=== PATIENT | male | born 1980 | race Two or more races ===

== ENCOUNTER → 2017-10-21 | Outpatient (CLI) | payer BC ==
[2017-10-21 11:22] LABS: CHOLESTEROL LEVEL 149 MG/DL (<200); CHOLESTEROL RISK RATIO 4.257 (<5); GLUCOSE, FASTING 93 MG/DL (70-100); HDL CHOLESTEROL 35 MG/DL (>40); LDL CHOLESTEROL 70.6 MG/DL (<100); NON-HDL-C 114 MG/DL; TRIGLYCERIDES LEVEL 217 MG/DL (<150)
== END ==
LOC: M SMT 08:06
DX: R63.1 Polydipsia (principal); Z13.220 Encounter for screening for lipoid disorders; Z68.34 Body mass index [BMI] 34.0-34.9, adult

== ENCOUNTER 2020-04-01 20:58 | Emergency (ER) | payer BC, OTHER ==
[~2020-04-01] VITALS: Ht 200.7 cm; Wt 145.4 kg
[2020-04-01] MEDS ORDERED: KETOROLAC 60MG 2ML VIAL IM ONE (23:45)
[2020-04-02] VITALS: BP 151/70
--- NOTE | 2020-04-02 08:28 | REP ---
REASON: Chest pain. The technique utilized in obtaining the radiograph has magnified the cardiac silhouette and accentuated the interstitial markings. Minimal discoid opacities are seen in the left lower lobe consistent with minimal discoid subsegmental atelectatic change. The lung hunt are otherwise clear and the pleural angles are sharp. The heart is not enlarged. IMPRESSION: Minimal left lower lobe discoid atelectasis. Electronically Signed by Kenneth Michel DO 04/02/2020 09:55 A
--- NOTE | 2020-04-02 16:29 | ECGEPIP ---
[facility] - ED Test Date: 2020-04-01 Pat Name: JOSÉ DUMONT Department: Room: - Gender: Male Elementary Supervisor: nirav : 1980 Requested By: MARGO SCHWARTZ Order Number: [id number] Reading MD: Cheyenne Zeng Measurements Intervals [place] Rate: 81 P: 66 OR: 179 QRS: 68 QRSD: 106 T: 44 QT: 344 QTc: 402 Interpretive Statements SINUS RHYTHM INCREASED RATE 11/05/15 Electronically Signed on 04-02-2020 16:29:16 EDT by Cheyenne Zeng
== END 2020-04-02 00:14 | disposition home or self-care (01) ==
LOC: M ED 20:58
DX: M94.0 Chondrocostal junction syndrome [Tietze] (principal); F17.210 Nicotine dependence, cigarettes, uncomplicated
CPT/HCPCS: 36600; 71045; 82803; 84484; 93005; 96372; 99284; J1885

== ENCOUNTER 2021-05-06 13:29 | Emergency (ER) | payer BC ==
[~2021-05-06] VITALS: Ht 200.7 cm; Wt 136.4 kg
[2021-05-06 16:47] LABS: BASO # 0.1 10^3/uL (0.0-0.2); BASO % 0.5 % (0.0-1.0); EOS # 0.7 10^3/uL (0.0-0.5); EOS % 5.6 % (0.0-3.0); HEMATOCRIT 47.7 % (42.0-52.0); HEMOGLOBIN 16.2 g/dl (13.5-17.5); LYMPH # 3.1 10^3/uL (1.5-5.0); LYMPH % 25.1 % (24.0-44.0); MEAN CORPUSCULAR HEMOGLOBIN 31.1 pg (27.0-33.0); MEAN CORPUSCULAR VOLUME 91.6 fl (80.0-96.0); MONO # 0.9 10^3/uL (0.0-0.8); MONO % 7.3 % (2.0-8.0); NEUTROPHILS # 7.5 10^3/uL (1.5-8.5); NEUTROPHILS % 61.1 % (36.0-66.0); PLATELET COUNT, AUTOMATED 335 10^3/uL (150-450); RED BLOOD COUNT 5.21 10^6/uL (4.30-6.10); WHITE BLOOD COUNT 12.3 10^3/uL (4.0-10.0)
[2021-05-06 17:15] LABS: BLOOD UREA NITROGEN 12 MG/DL (7-18); CALCIUM LEVEL 8.5 MG/DL (8.5-10.1); CARBON DIOXIDE LEVEL 24 MEQ/L (21-32); CHLORIDE LEVEL 110 MEQ/L (98-107); CREATININE FOR GFR 0.94 MG/DL (0.70-1.30); GLOMERULAR FILTRATION RATE > 60.0 (>60); GLUCOSE, FASTING 131 MG/DL (70-100); POTASSIUM SERUM 4.3 MEQ/L (3.5-5.1); SODIUM LEVEL 141 MEQ/L (136-145)
[2021-05-06] MEDS: GASTROGRAFIN SOLUTION 30ML PO SCH ×2 (17:39→18:10)
[2021-05-06] MEDS ORDERED: ISOVUE-370 76% 100ML VIAL As Ordered ONE (19:17)
--- NOTE | 2021-05-06 20:22 | REPVR ---
PROCEDURE INFORMATION: Exam: CT Abdomen And Pelvis With Contrast Exam date and time: 05/06/2021 7:50 PM Age: 41 years old Clinical indication: Abdominal pain; Additional info: Llq pain, lgi bleed TECHNIQUE: Imaging protocol: Computed tomography of the abdomen and pelvis with contrast. Radiation optimization: All CT scans at this facility use at least one of these dose optimization techniques: automated exposure control; mA and/or kV adjustment per patient size (includes targeted exams where dose is matched to clinical indication); or iterative reconstruction. Contrast material: ISOVUE 370; Contrast volume: 100 ml; Contrast route: INTRAVENOUS (IV); COMPARISON: CR Spine. Lumbosacral, complete 01/20/2016 11:34 PM FINDINGS: Liver: There is a diffuse decrease in hepatic parenchymal density, consistent with steatosis. Gallbladder and bile ducts: Normal. No calcified stones. No ductal dilation. Pancreas: Normal. No ductal dilation. Spleen: Normal. No splenomegaly. Adrenal glands: Normal. No mass. Kidneys and ureters: Normal. No hydronephrosis. Stomach and bowel: Unremarkable. No obstruction. No mucosal thickening. Appendix: No evidence of appendicitis. Intraperitoneal space: Unremarkable. No free air. No significant fluid collection. Vasculature: Unremarkable. No abdominal aortic aneurysm. Lymph nodes: Unremarkable. No enlarged lymph nodes. Urinary bladder: Unremarkable as visualized. Reproductive: Unremarkable as visualized. Bones/joints: Mild central spinal stenosis L4-L5. Soft tissues: Unremarkable. IMPRESSION: 1. There is a diffuse decrease in hepatic parenchymal density, consistent with steatosis. 2. No acute findings. Electronically signed by: Rocky Mitchell On 05/06/2021 20:22:21 PM
[2021-05-06 22:35] VITALS: BP 128/76
== END 2021-05-06 22:39 | disposition home or self-care (01) ==
LOC: M ED 13:29
DX: K92.2 Gastrointestinal hemorrhage, unspecified (principal)
CPT/HCPCS: 36415; 74177; 80048; 85025; 99284; Q9963; Q9967

== ENCOUNTER 2022-05-07 15:48 | Emergency (ER) | payer BC, OTHER ==
[~2022-05-07] VITALS: Ht 200.7 cm; Wt 136.0 kg
[2022-05-07 20:48] VITALS: BP 142/82
== END 2022-05-07 20:49 | disposition home or self-care (01) ==
LOC: M ED 15:48
DX: R51.9 Headache, unspecified (principal); S09.90XA Unspecified injury of head, initial encounter; W22.8XXA Striking against or struck by other objects, initial encounter; Y92.89 Other specified places as the place of occurrence of the external cause; Y99.0 Civilian activity done for income or pay